=== PATIENT | female | born 1960 | race Native Hawaiian/Other Pacific Islander ===

== ENCOUNTER 2022-03-18 21:58 | Emergency (ER) | payer SELFPAY ==
[2022-03-18 22:02] VITALS: BP 220/122; PULSE 72; RESP 16; TEMP 36.2; O2SAT 97
[2022-03-18 22:42] VITALS: BP 174/91; PULSE 68; RESP 16; O2SAT 95
--- NOTE | 2022-03-18 23:03 | XRR_ITS ---
PROCEDURE INFORMATION: Exam: XR Chest Exam date and time: 03/18/2022 11:12 PM Age: 61 years old Clinical indication: Fever; Additional info: Hypertension TECHNIQUE: Imaging protocol: Radiologic exam of the chest. Views: 1 view. COMPARISON: No relevant prior studies available. FINDINGS: Lungs: Unremarkable. No consolidation. Pleural spaces: Unremarkable. No pleural effusion. No pneumothorax. Heart/Mediastinum: Cardiomegaly. Bones/joints: S shaped scoliosis of the thoracolumbar spine. XR/XR chest 1V portable [id number] IMPRESSION: 1. Negative for infiltrate. 2. Cardiomegaly. 3. S shaped scoliosis of the thoracolumbar spine.
[2022-03-18 23:21] VITALS: BP 158/72; PULSE 67; RESP 16; O2SAT 91
[2022-03-18 23:30] LABS: Basophils # 0.1 10^3/uL (0.0-0.1); Basophils % 0.7 %; Eosinophils # 0.1 10^3/uL (0.0-0.8); Eosinophils % 0.6 %; Hematocrit 41.9 % (37.0-47.0); Hemoglobin 14.1 g/dL (11.5-15.3); Lymphocytes # 1.8 10^3/uL (0.8-4.8); Lymphocytes % 21.5 %; Mean Corpuscular HGB Conc 33.7 g/dL (30.0-36.0); Mean Corpuscular Hemoglobin 29.6 pg (28.0-34.0); Mean Corpuscular Volume 87.8 fl (81-99); Mean Platelet Volume 9.7 fL (7.4-10.4); Monocytes # 0.5 10^3/uL (0.2-0.9); Monocytes % 6.3 %; Neutrophils # 6.02 10^3/uL (1.8-7.7); Neutrophils % 70.5 %; Nucleated Red Blood Cells % 0 %; Platelet Count 314 10^3/cmm (130-400); Red Blood Count 4.77 10^6/uL (4.1-5.3); Red Cell Distribution Width 12.5 % (12.1-15.1); White Blood Count 8.5 10^3/uL (4.0-10.0)
[2022-03-18 23:45] LABS: Anion Gap 17.8 (5-19); Blood Urea Nitrogen 11 mg/dL (8-23); Calcium 9.7 mg/dL (8.5-10.5); Carbon Dioxide 24 mmol/L (22-29); Chloride 99 mmol/L (98-107); Glucose 111 mg/dL (65-115); Osmolality Calculated 284 mOsm/kg (285-295); Potassium 3.8 mmol/L (3.5-5.1); Sodium 137 mmol/L (136-145)
--- NOTE | 2022-03-19 00:16 | ED_ITS ---
HPI - General Adult General: Chief complaint: General Medical Stated complaint: High BP, bloating, dry mouth Time Seen by Provider: 03/18/22 22:50 Source: patient Mode of arrival: ambulatory Limitations: no limitations History of Present Illness: Patient here with complaints of high blood pressure. She states that her blood pressure was high at specialist office in which she was getting a skin biopsy done. See nursing assessment. Patient states she was a little anxious today due to the biopsy. She also complains of urinary frequency but no dysuria. She denies any abdominal pain. She denies a headache or chest pain. Onset (ago): day(s) (1) Associated symptoms: Deny chest pain, dyspnea, headache(s), nausea, rash, palpitations or vomiting Review of Systems Const: Denies: fever(s) or chills Eyes: Denies: change in vision ENMT: Denies: throat pain Card: Denies: chest pain or palpitations Resp: Denies: dyspnea or wheezing GI: Denies: abdominal pain, nausea or vomiting : Denies: flank pain Musc: Denies: neck pain or back pain Skin/Breast: Denies: rash or pruritus Neuro: Denies: headache(s) or numbness in extremities Psych: Reports: anxiety (Mild) Andres/Lymph: Denies: enlarged lymph nodes PFSH ED Supplemental PFSH Information: Patient with history of hypertension. Denies diabetes. Physical Exam Const: COMMON NORMALS: no acute distress, patient oriented x3, alert and well nourished GENERAL APPEARANCE: cooperative HENMT: COMMON NORMALS: normocephalic and atraumatic HEAD & SCALP: normocephalic and atraumatic Eye: COMMON NORMALS: EOMs intact bilaterally Neck/C-Spine: COMMON NORMALS: full ROM, no lymphadenopathy, supple and no JVD Lymph: LYMPHATIC: no lymphadenopathy noted Chest: COMMONS NORMALS: normal inspection of the chest and normal palpation of entire chest wall Resp: COMMON NORMALS: normal respiratory effort, No retractions, No use of accessory muscles and clear to auscultation bilaterally AUSCULTATION: clear to auscultation bilaterally Cardio: COMMON NORMALS: no JVD, regular rate, regular rhythm and Peripheral pulses 2+ throughout RATE: regular rate RHYTHM: regular rhythm PERIP HERAL PULSES: Peripheral pulses 2+ throughout GI: COMMON NORMALS: Normal to inspection, nondistended, normoactive bowel sounds present, Soft to palpation and non-tender PALPATION: Yes Soft to palpation : COMMON NORMALS: Yes no CVA tenderness BLADDER/KIDNEY EXAM: Yes no CVA tenderness Back/Pelvis: COMMON NORMALS: no CVA tenderness Extremity: COMMON NORMALS: normal to inspection and full ROM Neuro: COMMON NORMALS: patient oriented x3, CN's II-XII intact bilaterally, moves all extremities, no focal motor deficits and no sensory deficits noted SENSORIUM/ORIENTATION: Yes alert Psych: COMMON NORMALS: mental status grossly normal, Normal thought process present, cooperative, normal affect and speech normal SPEECH: Yes normal speech THOUGHT PROCESS: Normal thought process present Course Vital Signs: Vital signs: Vital Signs Temperature 97.1 F L 03/18/22 22:02 Pulse Rate 65 03/19/22 00:46 Respiratory Rate 16 03/19/22 00:46 Blood Pressure 150/91 03/19/22 00:46 Pulse Oximetry 94 03/19/22 00:46 Oxygen Delivery Me thod 03/19/22 00:46 MDM - General Adult Medical Decision Making Recheck blood pressure around midnight was 188/73. We will give hydralazine IV. Blood pressure improved to 148/86 after hydralazine IV. Will give dose of lisinopril 5 mg by mouth prior to discharge to hold her over until later today until she takes her blood pressure medications. Lab Data : 03/18/22 23:21 03/18/22 23:21 Radiology Impressions Chest X-Ray 03/18/22 23:03 IMPRESSION: 1. Negative for infiltrate. 2. Cardiomegaly. 3. S shaped scoliosis of the thoracolumbar spine. Laboratory Results WBC 8.5 10^3/uL (4.0-10.0) 03/18/22 23:21 RBC 4.77 10^6/uL (4.1-5.3) 03/18/22 23:21 Hgb 14.1 g/dL (11.5-15.3) 03/18/22 23:21 Hct 41.9 % (37.0-47.0) 03/18/22 23:21 MCV 87.8 fl (81-99) 03/18/22 23: MCH 29.6 pg (28.0-34.0) 03/18/22 23:21 MCHC 33.7 g/dL (30.0-36.0) 03/18/22 23:21 RDW 12.5 % (12.1-15.1) 03/18/22 23:21 Plt Count 314 10^3/cmm (130-400) 03/18/22 23:21 MPV 9.7 fL (7.4-10.4) 03/18/22 23:21 Neut % (Auto) 70.5 % 03/18/22 23:21 Lymph % (Auto) 21.5 % 03/18/22 23:21 [place] % (Auto) 6.3 % 03/18/22 23:21 Eos % (Auto) 0.6 % 03/18/22 23:21 Baso % (Auto) 0.7 % 03/18/22 23:21 Neut # (Auto) 6.02 10^3/uL (1.8-7.7) 03/18/22 23:21 Lymph # (Auto) 1.8 10^3/uL (0.8-4.8) 03/18/22 23:21 [place] # (Auto) 0.5 10^3/uL (0.2-0.9) 03/18/22 23:21 Eos # (Auto) 0.1 10^3/uL (0.0-0.8) 03/18/22 23:21 Baso # (Auto) 0.1 10^3/uL (0.0-0.1) 03/18/22 23:21 Nucleated RBC % (auto) 0 % 03/18/22 23:21 Nucleated RBCs # 0.0 /100WBC 03/18/22 23:21 Sodium 137 mmol/L (136-145) 03/18/22 23:21 Potassium 3.8 mmol/L (3.5-5.1) 03/18/22 23:21 Chloride 99 mmol/L (98-107) 03/18/22 23:21 Carbon Dioxide 24 mmol/L (22-29) 03/18/22 23:21 Anion Gap 17.8 (5-19) 03/18/22 23:21 BUN 11 mg/dL (8-23) 03/18/22 23:21 Creatinine 0.6 mg/dL (0.5-0.9) 03/18/22 23:21 GFR Calculation 102.0 mL/min (90-130) 03/18/22 23:21 Glucose 111 mg/dL (65-115) 03/18/22 23:21 Calculated Osmolality 284 mOsm/kg (285-295) L 03/18/22 23:21 Calcium 9.7 mg/dL (8.5-10.5) 03/18/22 23:21 Urine Color Straw (Yellow) 03/19/22 00:25 Urine Appearance Clear (CLEAR) 03/19/22 00:25 Urine pH 6.5 (5-7) 03/19/22 00:25 Ur Specific [place] 1.005 (1.005-1.030) 03/19/22 00:25 Urine Protein Neg (Negative) 03/19/22 00:25 Urine Glucose (UA) Norm (Normal) 03/19/22 00:25 Urine Ketones Negative (Negative) 03/19/22 00:25 Urine Blood Neg (Negative) 03/19/22 00:25 Urine Nitrate Negative (Negative) 03/19/22 00:25 Urine Bilirubin Neg (Negative) 03/19/22 00:25 Urine Urobilinogen Norm mg/dL (Negative) 03/19/22 00:25 Ur Leukocyte Esterase Negative (Negative) 03/19/22 00:25 Urine RBC None /hpf (0-2) 03/19/22 00:25 Urine WBC None /hpf (0-5) 03/19/22 00:25 Ur Squamous Epith Cells 0-4 /hpf (0-5) H 03/19/22 00:25 Amorphous Sediment Not Reportable 03/19/22 00:25 Urine Bacteria None /hpf (NONE) 03/19/22 00:25 Imaging Data CXR: Radiologist's impression: PROCEDURE INFORMATION: Exam: XR Chest Exam date and time: 03/18/2022 11:12 PM Age: 61 years old Clinical indication: Fever; Additional info: Hypertension TECHNIQUE: Imaging protocol: Radiologic exam of the chest. Views: 1 view. COMPARISON: No relevant prior studies available. FINDINGS: Lungs: Unremarkable. No consolidation. Pleural spaces: Unremarkable. No pleural effusion. No pneumothorax. Heart/Mediastinum: Cardiomegaly. Bones/joints: S shaped scoliosis of the thoracolumbar spine. XR/XR chest 1V portable [id number] IMPRESSION: 1. Negative for infiltrate. 2. Cardiomegaly. 3. S shaped scoliosis of the thoracolumbar spine. ? Dictated By: Marshall Rogers MD Signed By: Marshall Rogers MD Signed Date/Time: 03/18/22 1505 EKG Data EKG 1: I personally reviewed and interpreted this EKG as follows: EKG interpretation date: 03/18/22 EKG interpretation time: 22:15 Interpretation: EKG shows normal sinus rhythm with heart rate 62. Normal ST segment. LVH. N ormal MA interval, normal QT interval. Normal P wave, normal T waves. Normal axis. Normal EKG except for LVH. Computer generated interpretation: Chest X-Ray 03/18/22 23:03 IMPRESSION: 1. Negative for infiltrate. 2. Cardiomegaly. 3. S shaped scoliosis of the thoracolumbar spine. Discharge Plan Discharge Patient Disposition: Home Clinical Impression: Asymptomatic hypertensive urgency, Essential hypertension Condition: Stable Prescriptions: New lisinopril 10 mg tablet 10 mg PO DAILY Qty: 30 0RF Rx Instructions: For hypertension Discharge Orders: Discharge ED (Routine); Ordered 03/19/22 Ordered By: Iam Hebert Discharge Diet: Low Salt Discharge Activity: Increase activity as tolerated Patient Instructions: Hypertension (ED) Activity Restrictions/Additional Instructions: Continue taking metoprolol 50 mg twice a day. Add lisinopril 10 mg once each morning. Avoid added salt or caffeine. Follow-up with your family doctor this week for recheck. Record your blood pressures 4 times a day for your doctor. Urinalysis appeared normal. No evidence of infection. Coding Level of Care Code ED Mass Spectrometry Manager for Chg Fwd Exam Comprehensive
[2022-03-19] MEDS: hyDRALAzine 20 mg/mL INJ 1 mL 5 MG IVP (00:22)
[2022-03-19 00:24] VITALS: BP 188/73; PULSE 67; RESP 16; O2SAT 92
[2022-03-19 00:46] VITALS: BP 150/91; PULSE 65; RESP 16; O2SAT 94
[2022-03-19 00:51] LABS: Add Urine Culture? No; Bilirubin Urine Neg (Negative); Blood Urine Neg (Negative); Glucose Urine UA Norm (Normal); Ketones Urine Negative (Negative); Leukocyte Esterase Urine Negative (Negative); Nitrate Urine Negative (Negative); Protein Urine Neg (Negative); Specific Gravity, Urine 1.005 (1.005-1.030); Squamous Epithelial Cell Urine 0-4 /hpf (0-5); Urine Appearance Clear (CLEAR); Urine Color Straw (Yellow); Urobilinogen Urine Norm (Negative); pH Urine 6.5 (5-7)
[2022-03-19 01:06] VITALS: BP 148/86; PULSE 73; RESP 16; O2SAT 93
[2022-03-19] MEDS: lisinopril 10 mg Tablet 5 MG PO (01:07)
== END 2022-03-19 01:14 | disposition home or self-care (01) ==
PROVIDERS: Emergency Provider Family Medicine
DX: I16.0 Hypertensive urgency (principal); I10 Essential (primary) hypertension
CPT/HCPCS: 71045; 80048; 81001; 85025; 87086; 96374; 99284; J0360